=== PATIENT | female | born 1955 | race Caucasian/White ===

== ENCOUNTER 2017-02-01 11:44 | Emergency (ER) | payer OTHER ==
[~2017-02-01] VITALS: Ht 167.6 cm; Wt 70.8 kg
[2017-02-01] MEDS ORDERED: SODIUM CHLORIDE FLUSH 10ML SYR IVF ONE (14:00)
[2017-02-01 14:05] LABS: HEMOGLOBIN 13.9 g/dL (11.7-16.4)
[2017-02-01 14:16] LABS: BLOOD UREA NITROGEN 17 mg/dL (7-18)
[2017-02-01 14:32] LABS: ASPARTATE AMINO TRANSFERASE 34 U/L (15-37)
[2017-02-01 15:26] VITALS: BP 110/71
[2017-02-01] MEDS ORDERED: PROPARACAINE OPHTH 0.5%, 15ML ONE (15:36)
[2017-02-01] MEDS ORDERED: FLUORESCEIN OPHTHALMIC 1 MG STRIP ONE (15:36)
== END 2017-02-01 16:13 | disposition home or self-care (01) ==
LOC: ED 16:07
DX: R51 Headache (principal); F17.200 Nicotine dependence, unspecified, uncomplicated
CPT/HCPCS: 36415; 70450; 80053; 85025; 85651; 86141; 93005; 99285; J7512